=== PATIENT | male | born 1955 | race Caucasian/White ===

== ENCOUNTER 2024-03-07 12:36 | Inpatient (IN) | payer BC ==
[2024-03-07 13:08] VITALS: BMI 24.5
[2024-03-07] MEDS ORDERED: ACETAMINOPHEN 325 MG TABLET (FP) PO PRN (14:24)
[2024-03-07] MEDS ORDERED: MAG HYDROX/AL HYDROX/SIMETH 30 ML UNIT-DOSE CUP PO PRN (14:24)
[2024-03-07] MEDS ORDERED: NALOXONE (NARCAN) HCL 4 MG/0.1 ML SPRAY NS PRN (14:24)
[2024-03-07] MEDS ORDERED: POLYETHYLENE GLYCOL (HEALTHYLAX) 3350 17 GM PACKET PO PRN (14:24)
[2024-03-07] MEDS ORDERED: BENZOCAINE/MENTHOL (CHLORASEPTIC ) LOZENGE MM PRN (14:24)
[2024-03-07] MEDS ORDERED: BENZONATATE 200 MG CAPSULE PO PRN (14:24)
[2024-03-07] MEDS ORDERED: LOPERAMIDE HCL 2 MG CAPSULE PO PRN (14:24)
[2024-03-07] MEDS ORDERED: MAGNESIUM HYDROX 2400MG/30ML ORAL SUSPENSION 30 ML CUP PO PRN (14:24)
[2024-03-07] MEDS ORDERED: guaiFENesin 600 MG TABLET.ER (FP) PO PRN (14:24)
[2024-03-07] MEDS ORDERED: IBUPROFEN 400 MG TABLET (FP) PO PRN (14:24)
[2024-03-07] MEDS ORDERED: PRENATAL VITAMINS W/ FOLIC ACID TABLET (FP) PO ONE (16:23)
[2024-03-07] MEDS ORDERED: LISINOPRIL 10 MG TABLET ONE (16:23)
[2024-03-07] MEDS ORDERED: NICOTINE 14 MG/24 HOURS TOPICAL PATCH TD ONE (16:23)
[2024-03-07] MEDS: PRENATAL VITAMINS W/ FOLIC ACID TABLET (FP) PO SCH (16:26)
[2024-03-07] MEDS: LISINOPRIL 10 MG TABLET PO ONE (16:26)
[2024-03-07] MEDS: NICOTINE 14 MG/24 HOURS TOPICAL PATCH TD SCH (16:26)
[2024-03-07] MEDS ORDERED: ZOLPIDEM TARTRATE 5 MG TABLET PO PRN ×2 (16:33→22:00)
[2024-03-07] MEDS: METOPROLOL TARTRATE 50 MG TABLET (FP) PO ONE (20:52)
[2024-03-07] MEDS: GABAPENTIN 300 MG CAPSULE PO SCH (21:05)
[2024-03-07] MEDS: MELATONIN 5 MG TABLETS PO SCH (21:05)
[2024-03-07] MEDS: THIAMINE 100 MG TABLET PO SCH (21:06)
[2024-03-07] MEDS: IBUPROFEN 600 MG TABLET (FP) PO PRN (21:55)
[2024-03-07] MEDS: hydrOXYzine PAMOATE 25 MG CAPSULE (FP) PO PRN (21:55)
[2024-03-07] MEDS: OXcarbazepine 300 MG TABLET (UD) PO ONE (22:23)
[2024-03-08 00:22] LABS: EPI CELLS 2 /uL (0-25.1); HYALINE CASTS 2 /uL (0-3.1); PH,URINE 7.5 (5.0-8.0); URINE APPEARANCE CLEAR; URINE BACTERIA 16 /uL (0-1359); URINE BILIRUBIN NEGATIVE (NEGATIVE); URINE COLOR YELLOW; URINE GLUCOSE (UA) NEGATIVE (NEGATIVE); URINE KETONE NEGATIVE (NEGATIVE); URINE LEUK ESTERASE NEGATIVE (NEGATIVE); URINE NITRITE NEGATIVE (NEGATIVE); URINE PROTEIN 2+ (NEGATIVE); URINE RBC 25 /uL (0-23.9); URINE UROBILINOGEN 0.2 mg/dL (0.2-1.0); URINE WBC 8 /uL (0-25.8)
[2024-03-08 06:44] VITALS: TEMP 97.8
[2024-03-08] MEDS: amLODIPine BESYLATE 5 MG TABLET (FP) PO SCH (09:35)
[2024-03-08] MEDS: ATORVASTATIN CA 10 MG TABLET (FP) PO SCH (09:35)
[2024-03-08] MEDS: ARIPiprazole 10 MG TABLET PO SCH (09:35)
[2024-03-08] MEDS: LISINOPRIL 10 MG TABLET PO SCH (09:35)
[2024-03-08] MEDS: clonazePAM 1 MG ODT TABLETS SL SCH (09:36)
[2024-03-08] MEDS: NALOXONE (NYS OPIOID OVERDOSE PROGRAM) 4 MG/0.1 ML SPRAY NS SCH (09:37)
[2024-03-08] MEDS: OXcarbazepine 300 MG TABLET (UD) PO SCH (09:39)
[2024-03-08] MEDS: metoPROLOL SUCCINATE 25 MG TAB.SR.24H (FP) PO SCH (09:39)
[2024-03-08] MEDS: TUBERCULIN PPD 5 TU/0.1ML VIAL ID ONE (09:39)
[2024-03-08 10:02] VITALS: BP 161/94; PULSE 104; RESP 18
== END 2024-03-08 09:53 | disposition home or self-care (01) | DRG 895 ==
LOC: YASAS 12:36 → Y3E 15:36
PROVIDERS: ADMIT Psychiatry & Neurology Pain Medicine; ATTEND Psychiatry & Neurology Pain Medicine
PROC: HZ42ZZZ Group Counseling for Substance Abuse Treatment, Cognitive-Behavioral (ICD-10-PCS; principal; 2024-03-07)
DX: F11.20 Opioid dependence, uncomplicated (principal); F13.20 Sedative, hypnotic or anxiolytic dependence, uncomplicated; F14.10 Cocaine abuse, uncomplicated; F12.10 Cannabis abuse, uncomplicated; F17.210 Nicotine dependence, cigarettes, uncomplicated; G40.909 Epilepsy, unspecified, not intractable, without status epilepticus; I10 Essential (primary) hypertension; E78.5 Hyperlipidemia, unspecified
CPT/HCPCS: 80305; 80307; 81003; 87811; 93005; 93010